=== PATIENT | male | born 1955 | race Caucasian/White ===

== ENCOUNTER 2023-04-28 09:57 | Emergency (ER) | payer MEDICARE, OTHER, SELFPAY ==
--- NOTE | 2023-04-28 09:58 | ED_ITS ---
HPI - General Adult General Chief complaint: Extremity Injury, Lower Stated complaint: check right knee labs ran into heard pop sound Time Seen by Provider: 04/28/23 09:58 History of Present Illness HPI narrative: 67M nonsmoker with noncontributory medical history presents for evaluation of a knee injury suffered last night. He states that he was standing and his dog was playing with another dog and 1 of them, a large lab, ran into his right knee from the side. He states he heard a loud pop and felt immediate pain in his head pain and some swellingSince. His pain is worse when he tries to ambulate or bend it and improves with rest. He denies any history of the same. He facundo es numbness, tingling or weakness. He arrives using his own crutches with an antalgic gait Related Data Allergies Allergy/AdvReac Type Severity Reaction Status Date / Time Sulfa (Sulfonamide Allergy Severe Hives Verified 04/28/23 10:04 Antibiotics) Review of Systems Review of Systems Narrative: GENERAL: Denies chills, fatigue, malaise, fever, sweats. HEENT: Denies sinus pain, ear pain, sore throat, difficulty swallowing, dizzine ss. RESPIRATORY: Denies dyspnea, cough, wheezing, hemoptysis, sputum. CARDIOVASCULAR: Denies chest pain, palpitations, orthopnea, edema, GASTROINTESTINAL: Denies nausea, vomiting, abdominal pain, diarrhea, constipation, melena. : Denies dysuria, frequency, incontinence, hematuria, urinary retention. MUSCULOSKELETAL: see HPI SKIN: Denies rash, skin lesions, or other NEUROLOGIC: Denies weakness, headache, numbness, change in speech, confusion, seizures, incoordination. PSYCHIATRIC: No concerning psychosocial issues. 12 point review of systems is negative except for those stated above Patient History Social History Smoking Status: Never smoker Exam Narrative Exam Narrative: GEN: AOx3 and in mild distress, walking on his own, with crutches and an antalgic gait EYES: Pupils are equal, round, and reactive to light and accommodation. Extraoccular muscles are intact bilaterally. There is no subconjunctival hemorrhage or exudate. CHEST: Lungs are clear to auscultation bilaterally and free of wheezes, rales, or rhonchi. Heart rate is regular rhythm, there are no murmurs, clicks, rubs, or gallops. There is no chest wall tenderness. ABD: Abdomen is soft and nontender. There is no guarding or rebound. Bowel sounds are normal in all 4 quadrants. There is no mass or organomegaly. EXT: Full but painful range of motion of the right knee with mild effusion,No obvious ligamentous laxity or instability. No pain overlying the patella or medial joint line, some pain with palpation of lateral joint line. Negative Elvis's. Moderate pain of Posterior lateral knee with Amisha's SKIN: Warm, pink, and dry. No erythema or rash Initial Vital Signs Initial Vital Signs: Vital Signs Temperature 97.5 F L 04/28/23 10:00 Pulse Rate 62 04/28/23 10:00 Respiratory Rate 14 04/28/23 10:00 Blood Pressure 145/86 H 04/28/23 10:00 Pulse Oximetry 99 04/28/23 10:00 Oxygen Delivery Method Room Air 04/28/23 10:00 Course Orders Ordered: ED Orders 04/28/23 10:04 XR knee RT 3V Stat Vital Signs Vital signs: Vital Signs - 8 hr 04/28/23 10:00 04/28/23 10:06 Temperature 97.5 F L Pulse Rate 62 Pulse Rate [Right Dorsalis Pedis] 74 Respiratory Rate 14 Blood Pressure 145/86 H Pulse Oximetry 99 Oxygen Delivery Method Room Air Medical Decision Making [facility] Narrative Medical decision making narrative: CC: 67-year-old male with right knee pain after injury last night due to lateral impact Complicating co-morbidities: age Data collected from: Patient Medical records reviewed: Prior notes reviewed in our EMR Differential considered, but not limited to: fracture versus dislocation versus soft tissue injury versus other Exam documented above, pertinent findings include: mild effusion, antalgic gait, no ligamentous laxity, no erythema, tender on posterior lateral knee with Amisha's Imaging studies independently reviewed: knee x-ray demonstrates proximal fibula fracture Discussion: 67-year-old male with knee pain after lateral impact of a weighted knee, reassuring exam, mild effusion, no ligamentous laxity, imaging demonstrates proximal fib fracture. Disposition: see below, along with detailed discharge instructions that have been reviewed with patient as well as indications for ED re-evaluation and additional outpatient follow up Discharge Plan Departure Patient Disposition: Home Clinical Impression: Fibula fracture Instructions: Fibula Shaft Fracture Activity Restrictions/Additional Instructions: *You have been diagnosed with [right proximal fibula fracture] *What to do: *Please continue to take your regular medications as directed. [ ] New medication prescriptions sent to your pharmacy: [ ] [ ] New medication written as a paper prescription [x] Tylenol and occasional Motrin for pain *Please follow up with [Silviano ] of [facility] in 2-3 days, call for an appointment. Let them know you were seen in the Emergency Department and that we ask that you be seen in follow up. We will electronically transmit a record of today's note if your PCP is in our system *Return to Emergency Department if you should have any new, worsening or concerning symptoms, such as [worsening pain, significant swelling, cold extremities, numbness, tingling, weakness or other bothersome symptoms Weight bearing as tolerated Referrals: Lee Shore MD [Physician] - Stand Alone Forms: Patient Portal/API
[2023-04-28 10:00] VITALS: BP 145/86; PULSE 62; RESP 14; TEMP 36.4; O2SAT 99
--- NOTE | 2023-04-28 10:04 | DI.RAD.S_ITS ---
PROCEDURE: XR KNEE RT 3V INDICATIONS: knee pain, swelling, lateral impact TECHNIQUE: 3 views of the knee were acquired. COMPARISON: None. FINDINGS: Bones: Spiral fracture through the proximal fibula metadiaphysis. Soft tissues: Moderate joint effusion. No suspicious soft tissue calcifications. IMPRESSION: Spiral fracture through the proximal fibula metadiaphysis. Moderate knee joint effusion. Dictated by: Robert Bravo M.D. on 04/28/2023 at 10:23 Approved by: Robert Bravo M.D. on 04/28/2023 at 10:24
[2023-04-28 10:06] VITALS: PULSE 74
== END 2023-04-28 11:03 | disposition home or self-care (01) ==
PROVIDERS: Emergency Provider Emergency Medicine
DX: S82.831A Other fracture of upper and lower end of right fibula, initial encounter for closed fracture (principal); W54.1XXA Struck by dog, initial encounter
CPT/HCPCS: 73562; 99283